=== PATIENT | male | born 1955 | race African-American/Black ===

== ENCOUNTER 2017-03-10 11:35 | Emergency (ER) | payer MEDICARE, OTHER ==
[~2017-03-10] VITALS: Ht 172.7 cm; Wt 70.0 kg
[2017-03-10 13:29] VITALS: BP 138/67
== END 2017-03-10 13:31 | disposition home or self-care (01) ==
LOC: ER 11:35
DX: F32.9 Major depressive disorder, single episode, unspecified (principal)
CPT/HCPCS: 99284